=== PATIENT | female | born 1975 | race Caucasian/White ===

== ENCOUNTER 2020-03-19 20:58 | Emergency (ER) | payer OTHER, SELFPAY ==
[2020-03-19 21:00] VITALS: BP 144/82; PULSE 111; RESP 16; TEMP 37.3; O2SAT 99
[2020-03-19 23:06] VITALS: BP 106/73; PULSE 110; RESP 14; TEMP 37; O2SAT 98
--- NOTE | 2020-03-19 23:29 | ED.ALLEREA ---
HPI - Allergic Reaction General Chief complaint: Allergic Reaction Stated complaint: poss all reaction History of Present Illness HPI narrative: Patient presents with her for allergic reaction. In the middle the night she was bit on her right shoulder blade, by an unknown entity. She continues to sleep, but during the day developed itching, and then spreading redness. Now she has redness on her face, chest, back, torso, and groin. She is itching primarily at the original insult site. She is only known to be allergic to poison ketan. She works as an operating room nurse. She took Benadryl at 430, and it made her a little wired. She has not been sick Related Data Home Medications Medication Instructions Recorded Confirmed naproxen 03/19/20 03/19/20 sumatriptan succinate mg PO 03/19/20 Allergies Allergy/AdvReac Type Severity Reaction Status Date / Time No Known Allergies Allergy Mild Verified 03/19/20 21:08 Review of Systems Review of Systems: Narrative: CONSTITUTIONAL: Denies fever, chills, or sweats. EYES: Denies visual changes, redness, or discharge. ENT: Denies rhinorrhea, congestion, sore throat, or otalgia. CARDIOVASCULAR: Denies chest pain, palpitations, or edema. RESPIRATORY: Denies cough or dyspnea. GASTROINTESTINAL: Denies abdominal pain, nausea, vomiting, or diarrhea. GENITOURINARY: Denies dysuria or hematuria. SKIN: She has rash and itching. MUSCULOSKELETAL: Denies back pain, joint pain, or myalgia. NEUROLOGIC: Denies headache, numbness, or weakness. PSYCHIATRIC: Denies anxiety or depression. [facility] Past Medical History Medical History (Updated 03/19/20 @ 23:57 by Raya Bains MD) Allergic reaction Social History Social History (Updated 03/19/20 @ 23:57 by Raya Bains MD) Smoking status: Never smoker Alcohol intake: never Substance use: never Exam Narrative: Exam Narrative: GENERAL: Well-appearing, well-nourished, and in no acute distress. HEAD: Normocephalic, atraumatic. EYES: PERRLA and EOMI. ENT: Nares clear, no rhinorrhea or epistaxis. Mucous membranes moist. NECK: Supple. CHEST: Clear to auscultation. No respiratory distress. HEART: Regular rate and rhythm. No murmur heard. Normal peripheral pulses. ABDOMEN: Soft, nontender, nondistended, normal active bowel sounds. EXTREMITIES: Normal range of motion. No edema. SKIN: Warm, dry, flushed face, reddened firm area 1 inch on her right shoulder blade, faint rash on the chest and groin. NEURO: No focal deficits. Alert and oriented x3. PSYCH: Normal mood and affect. Course Vital Signs Vital signs: Vital Signs Temperature 99.1 F 03/19/20 21:00 Pulse Rate 111 H 03/19/20 21:00 Respiratory Rate 16 03/19/20 21:00 Blood Pressure 144/82 H 03/19/20 21:00 Pulse Oximetry 99 03/19/20 21:00 Temperature 98.6 F 03/19/20 23:06 Pulse Rate 110 H 03/19/20 23:06 Respiratory Rate 14 03/19/20 23:06 Blood Pressure 106/73 03/19/20 23:06 Pulse Oximetry 98 03/19/20 23:06 MDM - Allergic Reaction Differential Diagnosis Differential diagnosis: Likely allergic reaction Medical Records Attestation: I reviewed the patient's medical records. Discharge Plan Discharge Clinical Impression: Allergic reaction Qualifiers: Encounter type: initial encounter Qualified Code(s): T78.40XA - Allergy, unspecified, initial encounter Patient Disposition: Home, Self-Care Condition: Stable Instructions: Allergies (ED) Prescriptions: New methylprednisolone 4 mg tablets,dose pack See Rx Instructions .ROUTE .COMPLEX Qty: 21 RF: 0 No Action sumatriptan succinate 100 mg tablet PO RF: 0 naproxen 500 mg tablet RF: 0 Follow-up/Referrals: Juan Phelps DO [Primary Care Provider] - (Call for follow-up appointment) Stand Alone Forms: Work/School Release IP Time of Disposition: 23:56
[2020-03-19] MEDS: methylPREDNISolone SOD SUCC 125 MG VIAL IV PUSH (23:47)
[2020-03-20 01:22] VITALS: BP 116/86; PULSE 100; RESP 20; O2SAT 99
== END 2020-03-20 01:25 | disposition home or self-care (01) ==
PROVIDERS: Emergency Provider Emergency Medicine; PCP Internal Medicine
DX: T78.40XA Allergy, unspecified, initial encounter (principal)
CPT/HCPCS: 96374; 96375; 99284; J1200; J2930

== ENCOUNTER 2020-10-28 00:43 | Outpatient (CLI) | payer OTHER, SELFPAY ==
[2020-10-28 19:42] LABS: SARS-CoV-2 RNA PCR Negative
== END 2020-10-28 00:44 | disposition home or self-care (01) ==
LOC: ANHCOVIDDT 00:47
PROVIDERS: Visit Provider Podiatrist Foot & Ankle Surgery
DX: Z01.812 Encounter for preprocedural laboratory examination (principal); Z20.822 Contact with and (suspected) exposure to COVID-19
CPT/HCPCS: C9803; U0003

== ENCOUNTER 2020-10-31 01:05 | Day surgery (SDC) | payer OTHER, SELFPAY ==
[2020-10-21 14:39] VITALS: BMI 28.3
[2020-10-31] VITALS (8 sets, daily range): BP systolic 106–126; BP diastolic 59–81; PULSE 69–87; RESP 10–20; TEMP 36.6–37.3; O2SAT 99–100
--- NOTE | 2020-10-31 07:12 | WPDHPUPDATE1 ---
History and Physical Update Update Date/Time: 10/31/20 07:12 History and Physical has been reviewed, including an updated exam of the patient. There are NO changes in the patient's condition. Risks, benefits, and alternatives have been discussed and questions answered. Patient agrees to proceed with procedure.
--- NOTE | 2020-10-31 08:00 | P.PNAN_ITS ---
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, aguilar neuroma Patient Data Age: 45 Gender: F Height: 1.65 m Weight: 77.1 kg Allergies Allergy/AdvReac Type Severity Reaction Status Date / Time No Known Allergies Allergy Mild Verified 03/19/20 21:08 Home Medications Medication Instructions Recorded Confirmed Type naproxen 500 mg PO PRN PRN 03/19/20 10/22/20 History sumatriptan succinate 100 mg PO PRN PRN 03/19/20 10/22/20 History Patient hx anesthesia problems: none Family hx anesthesia problems: none FOR[facility]LY [facility], [facility] Past Medical History Medical History (Updated 10/30/20 @ 11:39 by Zafar Chand DO) Allergic reaction Migraine Surgical History Surgical History (Updated 10/30/20 @ 11:39 by Zafar Chand DO) History of appendectomy Social History Social History (Updated 03/19/20 @ 23:57 by Raya Bains MD) Smoking status: Never smoker Alcohol intake: never Substance use: never Substance use type: does not use Living arrangements: with family Gender identity (if verbalized by the patient): Female Sexual Orientation (if Verbalized by the Patient): Straight or Heterosexual Spiritual care concerns: No Anes - Eval Final PreProcedure Day of Procedure 10/31/20 08:00 Patient weight: overweight Heart: regular rate and rhythm Lungs: clear to auscultation and normal air movement Airway: Mallampati scale class 1 Neurological: alert and oriented Last oral intake: >/= 8 hours ASA classification: II Emergent: no Anesthetic plan: proceed Anesthesia type and monitoring: general LMA and standard monitoring Informed Consent: The patient's anesthetic plan and its attendant risks and benefits were discussed with the patient/family/POA. Questions were solicited and answers provided to the satisfaction of the patient/family/POA.
[2020-10-31] MEDS: LACTATED RINGERS 1,000 ML 30 ML IV CONT ×2 (09:05→11:00)
[2020-10-31] MEDS: ceFAZolin SODIUM 1 GM VIAL 2 GM IV PUSH (10:03)
--- NOTE | 2020-10-31 10:44 | PM.PROC ---
Procedure Note - Detailed Date of procedure: 10/31/20 Pre-op diagnosis: plantar fascitis lt foot, aguilar neuroma Post-op diagnosis: same Procedure performed: 1. Plantar fasciectomy left foot 2. Excision of plantar neuroma left foot Anesthesia: GLMA and local Surgeon: James Ellis JR, DPM Estimated blood loss (mL): 1 Drains: No Packing: No Pathology: yes (Neural tissue left foot, plantar fascia left foot) Complications: No immediate complications Condition: stable Disposition: same day Findings: Under mild sedation, the patient was brought in to the operating room, placed on the operating table in the supine position. A pneumatic ankle tourniquet was placed about the patient's left ankle. Following general anesthesia, local anesthesia was obtained about the left lower extremity utilizing 20 mL of Exparel to the proximal common peroneal nerve and tibial nerve. The foot was then scrubbed, prepped, and draped in the usual aseptic manner. An Esmarch bandage was then used to exsanguinate the patient's foot and the pneumatic ankle tourniquet was then inflated. An incision was made along the dorsal 3rd inter metarsal space. All bleeders were cauterized as necessary. The Deep transverse intermetatarsal ligament was severed. Next Dissection was continued deep to the plantar nerve which was hypertrophied and amorphous. It was dissected proximal to the central metatarsal shaft area and transected next the distal branches were dissected and transected to the affected third and fourth digits. The neural tissue was sent for gross and histo. The Deep subcutaneus tissue was reapproximated with 3.0 Vicryl and the skin was reapproximated with 4.0 Monocryl. Next, an incision was made starting distal to the medial tubercle of the calcaneus extending distally 3cm long. All bleeders were cauterized as necessary. Next the dissection was continued down to the plantar fascia it was exposed medially and laterally with [place] retractors. Two thirds of the plantar fascia was transected and a 4mm portion was also cut and sent for gross and histophalogy. The wound site was flushed with sterile saline. The Deep subcutaneus tissue was reapproximated with 2.0 Vicryl and the skin was reapproximated with 2.0 Prolene and 3.0 Prolene in Vertical mattress and Simple interrupted suture technique. Upon completion of the procedure, the dorsal incision was dressed with Steri-Strips, Adaptic, 4x4s, Kerlix, and Coban, the plantar incision was dressed with adaptic, 4.4 gauze, kerlix and coban. The pneumatic ankle tourniquet was then deflated and a prompt hyperemic response was noted to all digits of the left foot. The surgical shoe was then applied. The patient did very well with the procedure and the anesthesia. She was transferred to the recovery room with vital signs stable and vascular status intact to all toes of the affected foot. Following a period of postoperative monitoring, the patient will be discharged home on the following written and oral postoperative instructions: 1. The patient should keep the dressing clean, dry, and intact. Use a cast protector bag with showers. 2. The patient will be strictly protected weight bearing with a surgical shoe. 3. Patient should ice and elevate the right foot when at rest. 4. The patient is to contact Dr. Ellis for all postop care and if any problems arise. 5. Prescriptions were written for Percocet 5/325 dispensed 40 to be taken 1 p.o. q.4-6 hours as needed for severe pain.
[2020-10-31] MEDS: oxyCODONE HCL (*CRX) 5 MG TAB IR PO (12:12)
== END 2020-10-31 12:45 | disposition home or self-care (01) ==
PROVIDERS: Visit Provider Podiatrist Foot & Ankle Surgery
PROC: (CPT 28119; principal; 2020-10-31 10:30)
PROC: (CPT 28060; 2020-10-31 10:30)
DX: M72.2 Plantar fascial fibromatosis (principal); G57.62 Lesion of plantar nerve, left lower limb
CPT/HCPCS: 28060; 28080; 88304; A9270; C9290; C9803; J0690; J1100; J2250; J2405; J2704; J3010; J7120; U0003

== ENCOUNTER → 2020-12-22 15:55 | Outpatient (CLI) | payer OTHER, SELFPAY ==
--- NOTE | ~2020-12-22 | MM_ITS ---
EXAMINATION: MM screening [facility] BI w suzette HISTORY: Screening TECHNIQUE: Craniocaudal and mediolateral oblique 3-D tomosynthesis images were obtained and synthetic 2-D images were generated. CAD analysis was submitted and interpreted. COMPARISON: Comparison to multiple prior studies sequentially, with oldest reviewed study dated 08/24. BREAST PARENCHYMAL COMPOSITION: There are scattered areas of fibroglandular density. FINDINGS: There is no evidence of suspicious mass, calcification, or architectural distortion to sugg est malignancy in either breast. There has been no suspicious interval change. IMPRESSION: 1. No mammographic evidence of malignancy. 2. Recommend routine screening mammography in one year. BI-RADS Category 1: Negative Reviewed, dictated and finalized at location A. [employer]
== END ==
PROVIDERS: Visit Provider Nurse Practitioner
DX: Z12.31 Encounter for screening mammogram for malignant neoplasm of breast (principal)
CPT/HCPCS: 77063; 77067

== ENCOUNTER → 2022-01-06 15:58 | Outpatient (CLI) | payer OTHER, SELFPAY ==
--- NOTE | ~2022-01-06 | MM_ITS ---
EXAMINATION: MM screening [facility] BI w suzette HISTORY: Screening mammogram TECHNIQUE: Craniocaudal and mediolateral oblique 3-D tomosynthesis images were obtained and synthetic 2-D images were generated. CAD analysis was submitted and interpreted. COMPARISON: 12/22/2020, 01/08/2019, 10/27/2017 BREAST PARENCHYMAL COMPOSITION: There are scattered areas of fibroglandular density. FINDINGS: There is no suspicious mass, calcification, or architectural distortion to suggest malignan cy in either breast. There has been no suspicious interval change. IMPRESSION: 1. No mammographic evidence of malignancy. 2. Recommend routine screening mammography in one year. BI-RADS Category 1: Negative Reviewed, dictated and finalized at location A.
== END ==
PROVIDERS: Visit Provider Nurse Practitioner
DX: Z12.31 Encounter for screening mammogram for malignant neoplasm of breast (principal)
CPT/HCPCS: 77063; 77067

== ENCOUNTER → 2022-09-21 15:34 | Outpatient (CLI) | payer OTHER, SELFPAY ==
--- NOTE | ~2022-09-21 | XR_ITS ---
XR lumbar spine 2-3V DATE: 09/21/2022 15:58 INDICATION: Low back pain TECHNIQUE: AP, lateral, coned lateral lumbosacral views COMPARISON: None FINDINGS: Normal alignment of the lumbar spine. Included lower thoracic and lumbar pedicles are intac t. No fracture or bone destruction or spondylolisthesis. Lumbar and lumbosacral interspaces are well preserved. The sacroiliac joints are intact. IUD overlies the pelvis. IMPRESSION: No significant abnormality of the lumbar spine Reviewed, dictated and finalized at location B. [employer]
== END ==
PROVIDERS: PCP Family Medicine; Visit Provider Family Medicine
DX: G89.29 Other chronic pain (principal); M54.50 Low back pain, unspecified
CPT/HCPCS: 72100

== ENCOUNTER → 2023-02-16 16:00 | Outpatient (CLI) | payer OTHER, SELFPAY ==
--- NOTE | ~2023-02-16 | MM_ITS ---
EXAMINATION: MM screening [facility] BI w suzette HISTORY: Screening mammogram TECHNIQUE: Craniocaudal and mediolateral oblique 3-D tomosynthesis images were obtained and synthetic 2-D images were generated. CAD analysis was submitted and interpreted. COMPARISON: 01/06/2022, 12/22/2020, 01/08/2019 bilateral screening mammogram examinations BREAST PARENCHYMAL COMPOSITION: There are scattered areas of fibroglandular density. FINDINGS: There is no evidence of suspicious mass, calcification, or architectural distortion to sugg est malignancy in either breast. There has been no suspicious interval change. IMPRESSION: 1. No mammographic evidence of malignancy. 2. Recommend routine screening mammography in one year. BI-RADS Category 1: Negative Reviewed, dictated and finalized at location A.
== END ==
PROVIDERS: PCP Family Medicine; Visit Provider Nurse Practitioner
DX: Z12.31 Encounter for screening mammogram for malignant neoplasm of breast (principal)
CPT/HCPCS: 77063; 77067

== ENCOUNTER 2023-11-01 09:43 | Outpatient (CLI) | payer OTHER, SELFPAY ==
--- NOTE | 2023-11-01 10:04 | EST_ITS ---
Patient Info Name: Nini Leija Age: 48 years : 1975 Gender: Female Ht: 64 in Wt: 150 lbs BSA: 1.77 m2 HR: 94 bpm BP: 139 / 87 mmHg Heart Rhythm: Sinus Rhythm Exam Date: 11/01/2023 10:15 AM Exam Location: [facility] Patient Status: Outpatient Admit Date: 11/01/2023 Staff Ordering Physician: Anabel Portillo PA-C Attending Provider: Anabel Portillo PA-C Exercise Technologist: Amparo Rahman CT Exercise Physician: John Ng DO Exam Type: CA stress test treadmill Study Info Indications R07.89 - Other chest pain A treadmill exercise stress test was performed. Summary 1. 1. Negative Pietro exercise stress test for ischemic ST changes by ECG criteria. 2. 2. Reduced functional capacity, achieving 7 METs of workload. 3. 3. Appropriate HR response to exercise. 4. 4. Appropriate HR recovery at 1 minute post exercise. 5. 5. No imaging with stress testing. 6. 6. Patient informed of the above results. Protocol: Pietro Stress ECG Details Stage: REST Duration (min): 4 min : 4 sec Speed (mph): 0.0 Grade (%): 0 HR (bpm): 99 SBP (mmHg): 139 DBP (mmHg): 87 METS: --- Stage: REST Duration (min): 6 min : 9 sec Speed (mph): 0.0 Grade (%): 0 HR (bpm): 91 SBP (mmHg): 139 DBP (mmHg): 87 METS: --- Stage: STAGE 1 Duration (min): 1 min : 0 sec Speed (mph): 1.7 Grade (%): 10 HR (bpm): 126 SBP (mmHg): 139 DBP (mmHg): 87 METS: --- Stage: STAGE 1 Duration (min): 2 min : 0 sec Speed (mph): 1.7 Grade (%): 10 HR (bpm): 125 SBP (mmHg): 139 DBP (mmHg): 87 METS: --- Stage: STAGE 1 Duration (min): 3 min : 0 sec Speed (mph): 1.7 Grade (%): 10 HR (bpm): 138 SBP (mmHg): 165 DBP (mmHg): 74 METS: --- Stage: STAGE 2 Duration (min): 1 min : 0 sec Speed (mph): 2.5 Grade (%): 12 HR (bpm): 153 SBP (mmHg): 165 DBP (mmHg): 74 METS: --- Stage: STAGE 2 Duration (min): 2 min : 0 sec Speed (mph): 2.5 Grade (%): 12 HR (bpm): 164 SBP (mmHg): 170 DBP (mmHg): 72 METS: --- Stage: STAGE 2 Duration (min): 3 min : 0 sec Speed (mph): 2.5 Grade (%): 12 HR (bpm): 164 SBP (mmHg): 170 DBP (mmHg): 72 METS: --- Stage: RECOVERY Duration (min): 0 min : 59 sec Speed (mph): 0.0 Grade (%): 0 HR (bpm): 124 SBP (mmHg): 172 DBP (mmHg): 67 METS: --- Stage: RECOVERY Duration (min): 1 min : 59 sec Speed (mph): 0.0 Grade (%): 0 HR (bpm): 108 SBP (mmHg): 172 DBP (mmHg): 67 METS: --- Stage: RECOVERY Duration (min): 2 min : 59 sec Speed (mph): 0.0 Grade (%): 0 HR (bpm): 108 SBP (mmHg): 159 DBP (mmHg): 69 METS: --- Stage: RECOVERY Duration (min): 3 min : 8 sec Speed (mph): 0.0 Grade (%): 0 HR (bpm): 102 SBP (mmHg): 159 DBP (mmHg): 69 METS: --- Rest HR: 91 bpm Peak HR: 166 bpm Rest Sys BP: 139 mmHg Peak Sys BP: 172 mmHg Max Pred HR: 173 bpm % Max Pred HR: 96 % Target HR: 147 bpm Max RPP:
== END 2023-11-01 09:44 | disposition home or self-care (01) ==
LOC: ANHCARD 09:45
PROVIDERS: PCP Family Medicine; Visit Provider Physician Assistant
DX: R07.89 Other chest pain (principal)
CPT/HCPCS: 93017

== ENCOUNTER 2023-12-16 14:17 | Outpatient (CLI) | payer OTHER, SELFPAY ==
[2023-12-16 15:30] LABS: Influenza A QL RT-PCR Negative (Negative); Influenza B QL RT-PCR Negative (Negative); RSV RNA, RT-PCR Negative (Negative); SARS-CoV-2 RNA PCR Negative (Negative)
== END 2023-12-16 14:18 | disposition home or self-care (01) ==
PROVIDERS: PCP Family Medicine; Visit Provider Physician Assistant
DX: J32.9 Chronic sinusitis, unspecified (principal); Z20.822 Contact with and (suspected) exposure to COVID-19
CPT/HCPCS: 87637

== ENCOUNTER 2024-02-20 16:19 | Outpatient (CLI) | payer OTHER, SELFPAY ==
--- NOTE | ~2024-02-20 | MM_ITS ---
EXAMINATION: MM screening [facility] BI w suzette HISTORY: Screening mammogram TECHNIQUE: Craniocaudal and mediolateral oblique 3-D tomosynthesis images were obtained and synthetic 2-D images were generated. CAD analysis was submitted and interpreted. COMPARISON: February 16, 2023, January 06, 2022 bilateral screening mammogram examinations BREAST PARENCHYMAL COMPOSITION: There are scattered areas of fibroglandular density. FINDINGS: There is no evidence of suspicious mass, calcification, or architectural distortion to sugg est malignancy in either breast. There has been no suspicious interval change. IMPRESSION: 1. No mammographic evidence of malignancy. 2. Recommend routine screening mammography in one year. BI-RADS Category 1: Negative Reviewed, dictated and finalized at location A.
== END 2024-02-20 16:20 ==
LOC: MICIMG 16:20
PROVIDERS: PCP Nurse Practitioner; Visit Provider Nurse Practitioner
DX: Z12.31 Encounter for screening mammogram for malignant neoplasm of breast (principal)
CPT/HCPCS: 77063; 77067

== ENCOUNTER 2025-02-21 15:40 | Outpatient (CLI) | payer OTHER, SELFPAY ==
--- NOTE | ~2025-02-21 | MM_ITS ---
EXAMINATION: MM screening [facility] BI w suzette HISTORY: Screening TECHNIQUE: Craniocaudal and mediolateral oblique 3-D tomosynthesis images were obtained and synthetic 2-D images were generated. CAD analysis was submitted and interpreted. COMPARISON: Comparison to multiple prior studies sequentially, with oldest reviewed study dated 01/2018. BREAST PARENCHYMAL COMPOSITION: Not dense: There are scattered areas of fibroglandular density. FINDINGS: There is no evidence of suspicious mass, calcification, or architectural distortion to sugg est malignancy in either breast. There has been no suspicious interval change. IMPRESSION: 1. No mammographic evidence of malignancy. 2. Recommend routine screening mammography in one year. BI-RADS Category 1: Negative Reviewed, dictated and finalized at location A.
== END 2025-02-21 15:41 | disposition home or self-care (01) ==
LOC: MICIMG 15:41
PROVIDERS: PCP Family Medicine; Visit Provider Nurse Practitioner
DX: Z12.31 Encounter for screening mammogram for malignant neoplasm of breast (principal)
CPT/HCPCS: 77063; 77067